=== PATIENT | female | born 1980 | race Caucasian/White ===

== ENCOUNTER 2018-12-23 10:55 | Emergency (ER) | payer BC ==
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
[2018-12-23 11:19] VITALS: BP 152/93
--- NOTE | 2018-12-23 11:20 | NUR ---
STATUS BRITTANY LARKIN INTERNAL CONTROLS ANALYST IN ROOM AT THIS TIME
--- NOTE | 2018-12-23 11:21 | NUR ---
STATUS PT LYING IN BED AT THIS TIME. NO S/S OF DISTRESS NOTED. RESPS EVEN AND NON LABORED. ANA MARIA PORK CUTLET MAKER IN ROOM AT THIS TIME. WILL CONT TO MONITOR.
--- NOTE | 2018-12-23 11:26 | NUR ---
STATUS PT MOM IN ROOM AT THIS TIME
--- NOTE | 2018-12-23 11:42 | NUR ---
STATUS PT LYING DOWN IN BED AT THIS TIME. RESPS EVEN AND NON LABORED. NO S/S OF DISTRESS NOTED AT THIS TIME. WILL CONT TO MONITOR. Addendum: 12/23/18 at 1148 by BRITTANEY STATUS PT LYING IN BED AT THIS TIME. RESPS EVEN AND NON LABORED. NO S/S OF DISTRESS NOTED. PT MOM AT BEDSIDE AT THIS TIME.
--- NOTE | 2018-12-23 11:45 | NUR ---
TPC [facility] NOTIFIED. REPORT GIVEN TO CAMMY. STATES, "I WILL HAVE SOMEONE GET IN TOUCH WITH YOU."
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
--- NOTE | 2018-12-23 11:50 | NUR ---
STATUS PT LYING IN BED AT THIS TIME. NO S/S OF DISTRESS NOTED. RESPS EVEN AND NON LABORED. DR GARCIA IN ROOM WITH PT. MOM AT BEDSIDE. WILL CONT TO MONITOR.
--- NOTE | 2018-12-23 11:55 | NUR ---
STATUS PT REQUESTING , IN ROOM WITH PT.
--- NOTE | 2018-12-23 12:14 | NUR ---
STATUS PT REFUSING BLOOD WORK AT THIS TIME. SITTING UP IN BED, RESPS EVEN AND NON LABORED. NO S/S OF DISTRESS NOTED. WILL CONT TO MONITOR.
--- NOTE | 2018-12-23 12:31 | NUR ---
PTC PT IN TRIAGE ROOM FOR VIDEO CONFERENCE, ANA MARIA COMMERCIAL MAKEUP ARTIST IN ROOM WITH PT.
--- NOTE | 2018-12-23 12:46 | NUR ---
STATUS PT BACK IN ROOM AT THIS TIME. NO S/S OF DISTRESS NOTED. PT AT BEDSIDE. RESPS EVEN AND NON LABORED. BED LOCKED AND LOW POSITION. WILL CONT TO MONITOR
--- NOTE | 2018-12-23 12:50 | NUR ---
TPC ELISA FROM TPC STATES, "SHE DENIES ALL SELF HARM THERE IS NOTHING THAT I CAN DO AT THIS TIME."
--- NOTE | 2018-12-23 13:06 | NUR ---
STATUS PT LYING IN BED. RESPS EVEN AND NON LABORED. NO S/S OF DISTRESS NOTED. BED LOCKED AND LOW POSITION. SIDE RAILS UP X2. PT AT BEDSIDE. WILL CONT TO MONITOR.
--- NOTE | 2018-12-23 13:23 | NUR ---
STATUS PT LYING IN BED WITH EYES CLOSED. RESPS EVEN AND NON LABORED. NO S/S OF DISTRESS NOTED AT THIS TIME. MOM AND AT BEDSIDE. BED LOCKED AND LOW POSITION, BED RAILS UP X2. WILL CONT TO MONITOR.
--- NOTE | 2018-12-23 13:35 | NUR ---
D/C D/C INSTRUCTIONS PROVIDED TO PT ON PT ON GOING TO REHAB FACILITY IN [place] VIA PRIVATE VECHILE. VERBALIZED AND WRITTEN UNDERSTANDING RECEIVED. NO S/S OF DISTRESS NOTED AT THIS TIME. PT OUT OF ER VIA AMBULATION TO GO IN PRIVATE VECHILE WITH . RELINQUISHED CARE OF PT
[2018-12-23 13:40] VITALS: BP 152/93
== END 2018-12-23 13:35 | disposition home or self-care (01) ==
LOC: ER 10:55
DX: I10 Essential (primary) hypertension (principal); Y90.9 Presence of alcohol in blood, level not specified
CPT/HCPCS: 99281; 99283